=== PATIENT | male | born 1940 | race Caucasian/White ===

== ENCOUNTER 2018-09-23 17:38 | Inpatient (IN) | payer MEDICARE, BC ==
[2018-09-23 18:20] LABS: Bilirubin Negative (Negative); Blood, Urine Small (Negative); Clarity CLEAR (Clear); Glucose, Urine (Dipstick) 100 mg/dL (Negative); Leukocyte Negative (Negative); Nitrite Negative (Negative); Protein, Urine (Dipstick) 300 mg/dL (Neg-Trace); Specific Gravity, Urine 1.013 (1.002-1.036)
[2018-09-23 18:29] LABS: Bacteria/HPF None Seen HPF (None Seen); Hyaline Casts/LPF 0-3 HYALINE CAST LPF (0-3 Hyaline); Pathc Cast-AUWi Flag 0.27 (0-2.49); RBC/HPF 0-3 HPF (0-3); Squamous Epithelial 0-3 HPF (0-3); WBC/HPF 0-3 HPF (0-3)
[2018-09-23 19:10] LABS: #Eosinphils 0.1 thou/uL (0.0-0.7); #Lymphocytes 1.5 thou/uL (1.20-3.40); #Monocytes 0.7 thou/uL (0.11-0.59); #Neutrophils 6.5 thou/uL (1.40-6.50); %Basophils 0.4 % (0.0-1.0); %Eosinophils 1.4 % (0.0-10.0); %Lymphocytes 16.5 % (21.0-51.0); %Monocytes 7.9 % (0.0-10.0); %Neutrophils 73.9 % (42.0-75.0); Hemoglobin 9.4 g/dL (14.0-18.0); Mean Corpuscular HGB CONC 33.2 g/dL (32.0-36.0); Mean Corpuscular Hemoglobin 29.5 pg (27.0-31.0); Mean Corpuscular Volume 88.9 fL (78.0-98.0); Mean Platelet Volume 7.5 fL (7.4-10.4); Platelet Count 197 thou/uL (130-400); RBC Distribution Width 14.6 % (11.5-14.5); White Blood Cell (WBC) Count 8.8 thou/uL (4.8-10.8)
[2018-09-23] MEDS ORDERED: Nitroglycerin 2% Ointment 1 INCH/1 GM Packet ONE (19:11)
--- NOTE | 2018-09-23 19:17 | RAD ---
FExam: Portable upright chest Provided clinical history: Dyspnea FINDINGS: Cardiac silhouette appears enlarged. Blunting of the right costophrenic angle may reflect pleural flu id. Bibasilar subsegmental atelectatic change. No evidence for pneumothorax. IMPRESSION: Cardiomegaly and possible right pleural fluid.
[2018-09-23 19:37] LABS: ALT (SGPT) 9 U/L (8-55); AST (SGOT) 13 U/L (5-34); Albumin 3.8 g/dL (3.4-4.8); Alkaline Phosphatase 68 U/L (40-150); Anion Gap 22 mmol/L (10-20); BUN (Urea Nitrogen) 99 mg/dL (8.4-25.7); Bilirubin, Total 0.7 mg/dL (0.2-1.2); CK (CPK) 227 U/L (30-200); Calc. Creatinine Clearance 0 mL/min (70-130); Calcium 6.6 mg/dL (7.8-10.44); Carbon Dioxide 18 mmol/L (23-31); Chloride 108 mmol/L (98-107); Estimated GFR-MDRD 5; Globulin 2.9 g/dL (2.4-3.5); Glucose 85 mg/dL (83-110); Lipase 221 U/L (8-78); Potassium 4.7 mmol/L (3.5-5.1); Protein, Total 6.7 g/dL (5.8-8.1); Sodium 143 mmol/L (136-145)
[2018-09-23] MEDS ORDERED: Ondansetron PF 4 MG/2 ML Vial IVP PRN ×2 (22:48→23:54)
[2018-09-23] MEDS ORDERED: Ondansetron ODT 4 MG TAB SL PRN (22:48)
[2018-09-23] MEDS ORDERED: hydrALAZINE 20 MG/ML VIAL SLOW IVP PRN ×2 (23:04→23:54)
[2018-09-23] MEDS ORDERED: hydrALAZINE 10 MG TAB PO SCH (23:15)
[2018-09-23] MEDS ORDERED: hydrALAZINE 20 MG/ML VIAL SLOW IVP SCH (23:45)
[2018-09-23] MEDS: hydrALAZINE 20 MG/ML VIAL ONE (23:51)
[2018-09-23] MEDS ORDERED: Dextrose 50% Abboject 50 ML SYRINGE SLOW IVP PRN (23:54)
[2018-09-23] MEDS ORDERED: Acetaminophen 500 MG TAB PO PRN (23:54)
[2018-09-23] MEDS ORDERED: Dextrose 5% in Water 1,000 ML IV PRN (23:54)
[2018-09-23] MEDS ORDERED: Ondansetron ODT 4 MG TAB PO PRN (23:54)
[2018-09-23] MEDS ORDERED: Labetalol HCl 100 MG/20 ML VIAL SLOW IVP PRN (23:54)
[2018-09-23] MEDS ORDERED: HumaLOG 300 UNITS/3 ML VIAL SC PRN ×2 (23:54)
[2018-09-23] MEDS ORDERED: cloNIDine 0.1 MG TAB PO PRN (23:54)
--- NOTE | 2018-09-24 00:08 | CON ---
DATE OF CONSULTATION: 09/23/2018 CONSULTING PHYSICIAN: Berlin Gaston MD REASON FOR CONSULT: Acute kidney injury. REASON FOR ADMISSION: Abnormal labs. HISTORY OF PRESENT ILLNESS: This is a 78-year-old male with history of chronic kidney disease stage , hypertension, hyperlipidemia, melanoma, type 2 diabetes, came to the hospital with above complaints. Nephrology is consulted for further evaluation. The patient has been followed by Dr. Ewing, who has been having worsening renal function. The patient complains of shortness of breath and orthopnea. No fever or chills. No nausea, vomiting. No appetite changes. No bad taste in the mouth. PAST MEDICAL HISTORY: Positive for hypertension, hyperlipidemia, CKD, melanoma, type 2 diabetes, history of GEORGE. PAST SURGICAL HISTORY: Exploratory laparotomy for intestinal perforation. HOME MEDICATIONS: Include 1. Clonidine. 2. Ferrous sulfate. 3. Furosemide. 4. Glipizide. 5. Metoprolol. 6. Procardia. 7. Fish oil. 8. Zolpidem. ALLERGIES: NO KNOWN DRUG ALLERGIES. SOCIAL HISTORY: No smoking, alcohol, or illicit drug use. FAMILY HISTORY: No history of kidney disease. REVIEW OF SYSTEMS: CONSTITUTIONAL: Negative for weight loss or gain, ability to conduct usual activities. SKIN: Negative for rash, itching. EYES: Negative for double vision, pain. ENT/MOUTH: Negative for nose bleeding, neck stiffness, pain, tenderness. CARDIOVASCULAR: Negative for palpitations, dyspnea on exertion, orthopnea. RESPIRATORY: Negative for shortness of breath, wheezing, cough, hemoptysis, fever or night sweats. GASTROINTESTINAL: Negative for poor appetite, abdominal pain, heartburn, nausea, vomiting, constipation, or diarrhea. GENITOURINARY: Negative for urgency, frequency, dysuria, nocturia. MUSCULOSKELETAL: Negative for pain, swelling. NEUROLOGIC/PSYCHIATRIC: Negative for anxiety, depression. ALLERGY/IMMUNOLOGIC: Negative for skin rash, bleeding tendency. PHYSICAL EXAMINATION: GENERAL: This is a well-built male, in no apparent distress. VITAL SIGNS: Temperature 98.6, pulse 70, respirations 18, blood pressure 198/112. HEENT: Atraumatic, normocephalic. Oral mucosa is moist. NECK: Supple. CV: S1 and S2 heard. Rate and rhythm regular. RESPIRATORY: Clear. GASTROINTESTINAL: Abdomen is soft. MUSCULOSKELETAL: 1+ edema. DERMATOLOGIC: No skin rash. NEUROLOGIC: Alert and awake. PSYCHIATRIC: Normal mood and affect. LABORATORY DATA: Hemoglobin is 9.4, potassium 4.7, BUN is 99, creatinine is 9.8. ASSESSMENT AND PLAN: 1. End-stage renal disease. The patient does have progression of chronic kidney disease to end-stage renal disease, needing dialysis. No access placed yet. The patient has been postponing the access placement. Plan is to consult Surgery, keep n.p.o. after midnight and start dialysis as tolerated once the access is placed. 2. Metabolic acidosis, most likely from renal failure. 3. Anemia of chronic kidney disease. 4. Elevated BNP with fluid overload and shortness of breath. No hypoxia noted. We will remove fluid with dialysis as tolerated. 5. Hypertension. Continue medications. We will remove fluid with dialysis as tolerated and titrate medication as needed. 6. Edema. Plan is to start on dialysis. I had a detailed discussion with the patient and his and family member and the plan is to start dialysis. All the questions answered and we will have case management consult and surgery consult placed. We will keep n.p.o. after midnight. Check dialysis order set in the morning and we will plan for dialysis as soon as catheter is placed and plan is to have a fistula placement. The patient was also educated on PD and is not interested in doing PD at home at this point. Thank you for the consult. We will follow. Job ID: [id number]
[2018-09-24] MEDS: hydrALAZINE 20 MG/ML VIAL ONE (00:10)
[2018-09-24] MEDS ORDERED: Non-Formulary Item 1 EACH (Fexofenadine Hcl [Allegra Allergy] 60 MG) PO PRN (00:21)
[2018-09-24] MEDS ORDERED: Furosemide 40 MG/4 ML VIAL SLOW IVP SCH (00:30)
[2018-09-24] MEDS: Zolpidem Tartrate 5 MG TAB PO PRN ×2 (01:02→23:05)
[2018-09-24] MEDS: Loratadine 10 MG TAB PO PRN ×2 (01:02→20:35)
--- NOTE | 2018-09-24 01:16 | HP ---
PRIMARY CARE PROVIDER: Dr. Jeff Jones. CHIEF COMPLAINT: Swelling and shortness of breath. HISTORY OF PRESENT ILLNESS: This is a 78-year-old male, who presents to [facility] Emergency Department after being referred to the emergency room by his primary wardrobe technician. The patient with known chronic kidney disease stage 4 to 5, being monitored by Dr. Ewing. The patient's creatinine had been increasing to over 10 and previously noted in the 9 range several weeks prior to this evaluation. The patient has been medically managed by Dr. Ewing with recent change to metoprolol from atenolol and continuation of Lasix for volume management. The patient admits to increased shortness of breath with short distance ambulation or activity progressive in the last several days. The patient admits to increased swelling of his lower extremities progressing into the thighs and lower abdomen. The patient denied any fever, chills, chest pain, or left arm discomfort. The patient denies any other change to his chronic medication regimen and has been compliant according to the . In the emergency room, the patient underwent general evaluation, receiving transdermal nitroglycerin due to markedly elevated blood pressure in the emergency room. The patient's initial blood pressure is noted in the 215/116 range, receiving hydralazine and transdermal nitrates. The patient denies noting similar values using his home monitor. PAST MEDICAL HISTORY: 1. Chronic kidney disease stage 4, progressing to stage 5. 2. Hyperlipidemia. 3. Hypertension. 4. History of ischemic bowel with perforation. 5. Diabetes mellitus, type 2. PAST SURGICAL HISTORY: 1. Status post cyst removal from the right neck. 2. Status post bowel resection secondary to perforation. 3. Status post colonoscopy, last performed 5 years prior to this evaluation. CURRENT MEDICATIONS: 1. Metoprolol 100 mg p.o. b.i.d. 2. Glipizide 5 mg p.o. daily. 3. Lasix 40 mg p.o. b.i.d. 4. Clonidine 0.2 mg p.o. at bedtime. 5. Farideh 60 mg p.o. daily. 6. [place]-3 fatty acids 1 capsule p.o. daily. 7. Ambien 10 mg p.o. at bedtime p.r.n. ALLERGIES: NO KNOWN DRUG ALLERGIES. FAMILY HISTORY: Positive for hypertension and diabetes mellitus. SOCIAL HISTORY: The patient is , accompanied by his in the hospital. Resides at [place], [place]. Retired. No current alcohol, tobacco, or illicit drug use. Functional of all activities of daily living. REVIEW OF SYSTEMS: CONSTITUTIONAL: Negative for weight loss or gain, ability to conduct usual activities. SKIN: Negative for rash, itching. EYES: Negative for double vision, pain. ENT/MOUTH: Negative for nose bleeding, neck stiffness, pain, tenderness. CARDIOVASCULAR: Negative for palpitations, dyspnea on exertion, orthopnea. RESPIRATORY: Negative for shortness of breath, wheezing, cough, hemoptysis, fever or night sweats. GASTROINTESTINAL: Negative for poor appetite, abdominal pain, heartburn, nausea, vomiting, constipation, or diarrhea. GENITOURINARY: Negative for urgency, frequency, dysuria, nocturia. MUSCULOSKELETAL: Negative for pain, swelling. NEUROLOGIC/PSYCHIATRIC: Negative for anxiety, depression. ALLERGY/IMMUNOLOGIC: Negative for skin rash, bleeding tendency. Otherwise, negative except as stated per HPI. PHYSICAL EXAMINATION: VITAL SIGNS: On admission. Blood pressure 215/116, pulse 79, respiratory rate 20, temperature 98.2 degrees Fahrenheit, O2 saturation 98% on room air. GENERAL APPEARANCE: This is a 78-year-old male, alert and oriented x3, pleasant, in no acute distress. HEENT: Pupils are equal, round, reactive to light and accommodation. Extraocular muscles are intact. No scleral icterus. No conjunctival injection. Nares patent. OP is clear. Teeth in fair repair. NECK: Supple. No cervical adenopathy. No thyromegaly. No carotid bruits. No JVD appreciated. Cervical spine with full active and passive range of motion. No meningeal signs noted. CHEST: Diminished breath sounds in the bases bilaterally with occasional crackles. CARDIOVASCULAR: S1, S2 without noted murmur, rub, or gallop. ABDOMEN: Protuberant without tenderness to palpation. No palpable mass. No rebound or guarding noted. Landmarks are difficult to palpate due to patient's body habitus. EXTREMITIES: Warm and dry with fair turgor. Pitting edema to the mid thighs bilaterally. Pulses are palpable distally at the dorsalis pedis, posterior tibial, and popliteal arteries bilaterally. Capillary refill is less than 2 seconds. NEUROLOGIC: Cranial nerves 2 through 12 are grossly intact. No focal or lateralizing signs appreciated. PERTINENT LAB AND X-RAY FINDINGS: Sodium 143, potassium 4.7, chloride 108, CO2 of 18, anion gap 22, BUN 99, creatinine 9.81, estimated GFR 5, glucose 85, calcium 6.6. LFTs within normal limits. Total CK 227. BNP 3064, albumin 3.8, lipase 221. CBC showed a white blood cell count of 8.8, hemoglobin 9.4, hematocrit 28.4, platelet count 197 with normal differential. Urinalysis, positive for glucose and protein. Portable chest x-ray dated 09/23/2018, showed cardiomegaly and right pleural effusion. EKG dated 09/23/2018, by my interpretation shows sinus mechanism with heart rates in the 70s. Attenuated R-waves noted in the precordial leads. T-waves noted in the precordial leads. Normal axis. Left bundle-branch block pattern. No acute ST-T wave changes noted. ASSESSMENT/PLAN: 1. End-stage renal disease. The patient will be admitted to the telemetry unit. The patient progressing from chronic kidney disease stage 4 to stage 5. We will consult Nephrology Service for timing of hemodialysis, likely in the next 24 hours. The patient with associated volume overload clinically. Continue Lasix 40 mg IV b.i.d. until H hemodialysis initiated. 2. Hypertensive urgency. Resume home antihypertensive regimen to include metoprolol succinate 100 mg b.i.d. and clonidine 0.2 mg at bedtime. Add hydralazine and clonidine p.r.n. Continue transdermal nitrates. 3. Metabolic acidosis secondary to #1. We will continue treatment as outlined in #1. Serial CO2 monitoring. 4. Melena. Suspected on clinical exam. Check stool for guaiac. Rule out Clostridium difficile and check stool culture. Serial H and H monitoring. Consider GI consultation. 5. Anemia of chronic kidney disease. We will continue serial hemoglobin and hematocrit monitoring. Repeat CBC in the a.m. 6. Diabetes mellitus type 2 with end-stage renal disease. Continue insulin sliding scale for reflexive coverage. Hold glipizide due to n.p.o. status. Accu-Cheks before meals and at bedtime. ADA diet when tolerating p.o. intake. 7. Prophylaxis. SCDs while in bed. Pepcid 20 mg p.o. b.i.d. 8. Code status is full. Surrogate medical decision maker is the patient's spouse. Job ID: [id number]
[2018-09-24] MEDS: Furosemide 40 MG/4 ML VIAL SLOW IVP SCH ×2 (06:04→14:00)
[2018-09-24 06:30] LABS: Anion Gap 23 mmol/L (10-20); BUN (Urea Nitrogen) 98 mg/dL (8.4-25.7); Calc. Creatinine Clearance 8 mL/min (70-130); Calcium 6.8 mg/dL (7.8-10.44); Carbon Dioxide 15 mmol/L (23-31); Chloride 111 mmol/L (98-107); Estimated GFR-MDRD 5; Potassium 4.5 mmol/L (3.5-5.1); Sodium 144 mmol/L (136-145)
[2018-09-24 06:39] LABS: Hemoglobin 8.9 g/dL (14.0-18.0); Lymphocytes 12 % (21-51); MDiff Complete? YES; Mean Corpuscular Hemoglobin 29.9 pg (27.0-31.0); Mean Platelet Volume 7.6 fL (7.4-10.4); Monocytes 7 % (0-10); Neutrophil 81 % (42-75); Platelet Count 190 thou/uL (130-400); RBC Distribution Width 14.4 % (11.5-14.5); Red Blood Cell (RBC) Count 2.97 mill/uL (4.70-6.10); White Blood Cell (WBC) Count 10.4 thou/uL (4.8-10.8)
[2018-09-24 06:51] LABS: HBSAB Concentration 1.33 mIU/mL; HBSAg Index 0.31 S/CO (0-0.99); Hep B Core Total Ab Non-Reactive (NonReactive); Hep B Core Total Index 0.09 S/CO (0-0.79); Hep B Surf AB Non-Reactive (NonReactive); Hep B Surf Ag Non-Reactive S/CO (NonReactive); Hep C IgG Ab Non-Reactive (NonReactive); Hep C Index 0.16 S/CO (0-0.79)
[2018-09-24 07:06] LABS: Glucose 54 mg/dL (83-110)
[2018-09-24] MEDS ORDERED: Senokot S 8.6-50 MG TAB PO PRN (07:57)
[2018-09-24] MEDS ORDERED: Loperamide HCl 2 MG CAP PO PRN (07:57)
[2018-09-24] MEDS ORDERED: Artificial Tears 18 DROP/0.9 ML EA EYE PRN (07:57)
[2018-09-24] MEDS ORDERED: Calcium Carbonate 500 MG ChewTAB PO PRN (07:57)
[2018-09-24] MEDS ORDERED: Sodium Chloride 0.65% Nasal 44 ML BOT EA NARE PRN (07:57)
[2018-09-24] MEDS ORDERED: Cepastat Lozenges 1 LOZ PO PRN (07:57)
[2018-09-24] MEDS ORDERED: Eucerin (Mineral Oil/Petrolatum,White) 30 gm Jar TOP PRN (07:57)
[2018-09-24] MEDS ORDERED: HYDROcodone/Acetaminophen 5/325 mg Tablet PO PRN (07:57)
[2018-09-24] MEDS ORDERED: Diabetic Tussin 200 MG/10 ML UDCUP PO PRN (07:57)
[2018-09-24] MEDS ORDERED: Nitroglycerin 0.4 MG TAB (25 Tab Bottle) SL PRN (07:57)
[2018-09-24] MEDS ORDERED: Acetaminophen 500 MG TAB PO PRN ×2 (07:58→15:18)
[2018-09-24 08:25] LABS: Iron 49 ug/dL (65-175); Iron Binding Capacity, Total 269 mcg/dL (261-462); Phosphorus 7.3 mg/dL (2.3-4.7)
[2018-09-24] MEDS ORDERED: CEFAZOLIN 2 GM in Premix Bag 1 BAG IVPB SCH (09:45)
[2018-09-24] MEDS: Famotidine 20 MG TAB PO SCH (09:56)
[2018-09-24] MEDS: Folic Acid/Vit B Comp W-C PO SCH (09:56)
--- NOTE | 2018-09-24 10:02 | HP ---
HISTORY OF PRESENT ILLNESS: A 78-year-old male patient with chronic kidney disease, end-stage renal disease, needs dialysis access. He has left antecubital IV. Vein mapping has been ordered and pending. I have been asked by Dr. Mariano to place a dialysis catheter and fistula. Dr. Leon Hernández has been consulted for anemia and GI bleed. The patient is n.p.o. C globin is 8.9, potassium 4.5, BUN 98, creatinine 9.68, GFR 5. The patient has longstanding diabetes and hypertension. ALLERGIES: NONE SOCIAL HISTORY: Tobacco, none. Alcohol, occasional beer. MEDICATIONS: At home include, 1. Glipizide. 2. Catapres. 3. [place]-3 softgels. 4. Metoprolol 100 mg b.i.d. 5. Furosemide 40 mg b.i.d. 6. Ambien 10 mg at bedtime. PAST SURGICAL HISTORY: He had a laparotomy a few months ago at [facility] for perforated small bowel. He has skin cancers removed from his neck and arms. He has recently had a biopsy, right upper arm. He has undergone low-dose radiation for his recurrent diffuse skin cancers. He has had a colonoscopy 5 years ago. PAST MEDICAL HISTORY: Chronic kidney disease, hyperlipidemia, hypertension, and diabetes mellitus. REVIEW OF SYSTEMS: Noncontributory. PHYSICAL EXAMINATION: VITAL SIGNS: Height 5 foot 7 inches, weight 203 pounds, 31 BMI. Temperature 97.4, pulse 81, blood pressure 99/95. HEAD, EARS, EYES, NOSE AND THROAT: Unremarkable. LUNGS: Clear to auscultation. CARDIAC: Regular rate and rhythm without murmur or gallop. ABDOMEN: Soft and nontender. VASCULAR: Palpable radial pulses bilaterally. Left antecubital IV removed. Right hand IV present. EXTREMITIES: Unremarkable. No ankle edema. LABORATORY DATA: Sodium 144, potassium 4.5, BUN 98, creatinine 9.86, GFR 5, glucose 138 this morning, 54 earlier. ASSESSMENT AND PLAN: 1. End-stage renal disease. Plan placement of a hemodialysis catheter and left and right arm fistula. He is right-handed. Hopefully, we can use left arm, but of course, this will pend vein mapping. Left antecubital IV was removed in this patient with end-stage renal disease, chronic kidney disease and should not have been placed. Avoid IV access above his wrist. Preserve veins for dialysis access. Avoid PICC lines and midlines. 2. Diabetes mellitus. 3. Hypertension. Job ID: [id number]
--- NOTE | 2018-09-24 11:51 | PDOC.PN ---
- Subjective Encounter Start Date: 09/24/18 Encounter Start Time: 07:50 -: old records requested/rev Patient seen and examined. No new complaints. No overnight events - Objective Resuscitation Status - Order Detail: 09/23/18 23:49 Resuscitation Status Routine Resuscitation Status: FULL: Full Resuscitation MAR Reviewed: Yes Vital Signs & Weight: Vital Signs (12 hours) Temp Pulse Resp BP BP Pulse Ox 09/24/18 09:56 199/95 H 09/24/18 08:00 97.4 F L 80 16 199/95 H 98 09/24/18 04:00 98.1 F 78 20 177/88 H 97 09/24/18 00:30 82 164/74 H 09/24/18 00:10 88 220/108 H 09/23/18 23:52 88 220/108 H Weight Admit Weight 203 lb 12.8 oz Weight 203 lb 12.8 oz I&O: 09/23/18 09/24/18 09/25/18 06:59 06:59 06:59 Intake Total 354 Output Total 900 Balance -546 Result Diagrams: 09/24/18 05:28 09/24/18 05:28 Additional Labs: Accuchecks 09/24/18 09/24/18 09/24/18 11:33 06:47 05:43 POC Glucose 82 138 H 67 L EKG Reviewed by me: Yes Phys Exam - Physical Examination Constitutional: NAD HEENT: PERRLA, moist MMs, sclera anicteric Neck: no JVD, supple Respiratory: no wheezing, no rales, no rhonchi Cardiovascular: RRR, no significant murmur, no rub Gastrointestinal: soft, non-tender, no distention, positive bowel sounds Musculoskeletal: no edema, pulses present Neurological: non-focal, normal sensation, moves all 4 limbs Lymphatic: no nodes Psychiatric: normal affect, A&O x 3 Skin: no rash, normal turgor Dx/Plan (1) ESRD needing dialysis Code(s): N18.6 - END STAGE RENAL DISEASE; Z99.2 - DEPENDENCE ON RENAL DIALYSIS Status: Acute (2) High anion gap metabolic acidosis Code(s): E87.2 - ACIDOSIS Status: Acute (3) Hypoglycemia associated with type 2 diabetes mellitus Code(s): E11.649 - TYPE 2 DIABETES MELLITUS WITH HYPOGLYCEMIA WITHOUT COMA Status: Acute (4) Occult blood in stools Status: Acute (5) Anemia of renal disease Code(s): N18.9 - CHRONIC KIDNEY DISEASE, UNSPECIFIED; D63.1 - ANEMIA IN CHRONIC KIDNEY DISEASE Status: Chronic (6) Diabetes type 2, controlled Code(s): E11.9 - TYPE 2 DIABETES MELLITUS WITHOUT COMPLICATIONS Status: Chronic (7) Dyslipidemia Code(s): E78.5 - HYPERLIPIDEMIA, UNSPECIFIED Status: Chronic (8) Hypertension Code(s): I10 - ESSENTIAL (PRIMARY) HYPERTENSION Status: Chronic (9) Obesity (BMI 30.0-34.9) Code(s): E66.9 - OBESITY, UNSPECIFIED Status: Chronic (10) Secondary hyperparathyroidism of renal origin Code(s): N25.81 - SECONDARY HYPERPARATHYROIDISM OF RENAL ORIGIN Status: Chronic - Plan cont current plan of care, plan discussed w/ family * iron study * PTH, phos * start renvella * today HD access procedure * medication reviewed as below * symptomatic treatment * social work to arrange oupt HD * home meds reconciled. Review of Systems - Review of Systems ENT: negative: Ear Pain, Ear Discharge, Nose Pain, Nose Discharge, Nose Congestion, Mouth Pain, Mouth Swelling, Throat Pain, Throat Swelling, Other Respiratory: negative: Cough, Dry, Shortness of Breath, Hemoptysis, SOB with Excertion, Pleuritic Pain, Sputum, Wheezing Cardiovascular: negative: chest pain, palpitations, orthopnea, paroxysmal nocturnal dyspnea, edema, light headedness, other Gastrointestinal: negative: Nausea, Vomiting, Abdominal Pain, Diarrhea, Constipation, Melena, Hematochezia, Other Genitourinary: negative: Dysuria, Frequency, Incontinence, Hematuria, Retention , Other Musculoskeletal: negative: Neck Pain, Shoulder Pain, Arm Pain, Back Pain, Hand Pain, Leg Pain, Foot Pain, Other Skin: negative: Rash, Lesions, Aquiles, Bruising, Other - Medications/Allergies Allergies/Adverse Reactions: Allergies Allergy/AdvReac Type Severity Reaction Status Date / Time No Known Drug Allergies Allergy Verified 09/23/18 23:05 Medications: Current Medications Acetaminophen (Tylenol) 500 mg PO Q6H PRN PRN Reason: Mild Pain (1-3) Hydrocodone Bitart/Acetaminophen (Gregory 5/325) 1 tab PO Q4H PRN PRN Reason: Moderate Pain (4-6) Artificial Tears (Tears Naturale) 2 drop EA EYE PRN PRN PRN Reason: Dry Eyes Calcium Carbonate (Tums) 1,000 mg PO Q4H PRN PRN Reason: Heartburn or Indigestion Clonidine (Catapres) 0.1 mg PO Q4H PRN PRN Reason: SBP Greater Than 170 Last Admin: 09/24/18 09:56 Dose: 0.1 mg Clonidine (Catapres) 0.2 mg PO HS MARIA G Dextrose/Water (Dextrose 50%) 25 gm SLOW IVP PRN PRN PRN Reason: Hypoglycemia Last Admin: 09/24/18 06:04 Dose: 25 gm Famotidine (Pepcid) 20 mg PO QAM MARIA G Last Admin: 09/24/18 09:56 Dose: 20 mg Furosemide (Lasix) 40 mg SLOW IVP 0600,1400 [facility] Last Admin: 09/24/18 06:04 Dose: 40 mg Glucagon (Glucagon) 1 mg IM PRN PRN PRN Reason: Hypoglycemia Guaifenesin (Robitussin Sf) 200 mg PO Q4H PRN PRN Reason: Cough Hydralazine HCl (Apresoline) 20 mg SLOW IVP Q4H PRN PRN Reason: SBP > 180 and HR < 70 Dextrose/Water (D5w) 1,000 mls @ 0 mls/hr IV .Q0M PRN PRN Reason: Hypoglycemia Cefazolin Sodium/Dextrose 2 gm (/ Device) 50 mls @ 100 mls/hr IVPB ONCALL-OR MARIA G Insulin Human Lispro (Humalog) 0 units SC .MILD SLIDING SCALE PRN PRN Reason: Mild Correctional Scale Insulin Human Lispro (Humalog) 0 units SC .BEDTIME SLIDING SC PRN PRN Reason: Bedtime Correctional Scale Labetalol HCl (Normodyne) 20 mg SLOW IVP Q4H PRN PRN Reason: SBP > 180 and HR >/= 70 Loperamide HCl (Imodium) 2 mg PO PRN PRN PRN Reason: Diarrhea/Loose Stools Loratadine (Claritin) 10 mg PO DAILYPRN PRN PRN Reason: Allergies Last Admin: 09/24/18 01:02 Dose: 10 mg Metoprolol Succinate (Toprol Xl) 100 mg PO BID [facility] Last Admin: 09/24/18 09:57 Dose: 100 mg Mineral Oil/White Petrolatum (Eucerin Cream) 0 gm TOP BIDPRN PRN PRN Reason: Dry Skin Nitroglycerin (Nitrostat) 0.4 mg SL Q5MIN PRN PRN Reason: Chest Pain Ondansetron HCl (Zofran Odt) 4 mg PO Q6H PRN PRN Reason: Nausea/Vomiting Ondansetron HCl (Zofran) 4 mg IVP Q6H PRN PRN Reason: Nausea/Vomiting Senna/Docusate Sodium (Senokot S) 2 tab PO BID PRN PRN Reason: Constipation Sevelamer Carbonate (Renvela) 1,600 mg PO TID-[facility] Sodium Chloride (Flush - Normal Saline) 10 ml IVF Q12HR MARIA G Last Admin: 09/24/18 09:57 Dose: 10 ml Sodium Chloride (Flush - Normal Saline) 10 ml IVF PRN PRN PRN Reason: Saline Flush Sodium Chloride ([place] Nasal [place] 0.65%) 0 ml EA NARE QIDPRN PRN PRN Reason: Nasal Congestion Throat Lozenges (Cepastat Lozenges) 1 rosalba PO Q2H PRN PRN Reason: Sore Throat Vitamin B Complex/Vit C/Folic Acid (Nephro-Luda Tablet) 1 tab PO DAILY MARIA G Last Admin: 09/24/18 09:56 Dose: 1 tab Zolpidem Tartrate (Ambien) 10 mg PO HS PRN PRN Reason: sleep Last Admin: 09/24/18 01:02 Dose: 10 mg
[2018-09-24] MEDS: Sevelamer Carbonate 800 MG TAB PO SCH ×2 (12:00→17:00)
--- NOTE | 2018-09-24 12:09 | ULT ---
BILATERAL UPPER EXTREMITY VENOUS DOPPLER ULTRASOUND FOR DIALYSIS ACCESS: FINDINGS: RIGHT UPPER EXTREMITY: The right cephalic vein measures 2.1 mm in the proximal arm, 2.4 mm in the mid arm, 1.9 mm in the dis ashwin arm and cubital fossa, 2.4 mm in the proximal and mid arm, and 2.7 mm in the distal arm. The right basilic vein measures 3.9 mm in the proximal arm, 2.9 mm in the mid arm, 1.8 mm in the dist al arm, 1.4 mm in the cubital fossa, 1.2 mm in the proximal forearm, 0.8 mm in the mid forearm, and 1 .1 mm in the distal forearm. The right brachial artery measures 5.8 mm, radial artery 3 mm, and ulnar artery 1.1 mm. LEFT UPPER EXTREMITY: The left cephalic vein measures 2.4 mm in the proximal arm, 2.9 mm in the mid arm, 1.7 mm in the dist al arm, 2 mm in the cubital fossa, 1.5 mm in the proximal forearm, 2.1 mm in the mid forearm, and 2.3 mm in the distal forearm. The left basilic vein measures 4.1 mm in the proximal arm, 3.7 mm in the mid arm, 3.5 mm in the dista l arm, 2.5 mm in the cubital fossa, 0.9 mm in the proximal forearm, 0.7 mm in the mid forearm, 1.2 mm in the distal forearm. The left brachial artery measures 5 mm, radial artery 2.9 mm, and ulnar artery 2.7 mm. POS: TPC
[2018-09-24] MEDS ORDERED: Bupivacaine HCl 0.5%/Epinephrine 1:200,000/PF 30 ml Vial ONE ×2 (13:11→14:04)
[2018-09-24] MEDS ORDERED: Heparin 10,000 UNITS/ 10 ML VIAL ONE (13:45)
[2018-09-24] MEDS ORDERED: Metoprolol Tartrate 5 MG/5 ML VIAL ONE (13:45)
[2018-09-24] MEDS ORDERED: PROPOFOL 200 MG/20 ML VIAL ONE (13:46)
[2018-09-24] MEDS ORDERED: Heparin 10,000 UNITS/1 ML VIAL ONE (14:04)
[2018-09-24] MEDS ORDERED: Sodium Chloride 0.9% 10 ML ONE (14:04)
[2018-09-24] MEDS ORDERED: Protamine Sulfate 50 MG/5 ML VIAL ONE (14:04)
[2018-09-24] MEDS ORDERED: Lidocaine 2% PF 5 ML VIAL ONE (14:04)
[2018-09-24] MEDS ORDERED: Heparin 5,000 UNITS/ML VIAL ONE (14:04)
[2018-09-24] MEDS ORDERED: Fentanyl 100 MCG/2 ML VIAL ONE (14:35)
[2018-09-24] MEDS ORDERED: Midazolam HCl 2 mg/2 ml Vial ONE (14:35)
[2018-09-24] MEDS ORDERED: traMADol HCl 50 MG TAB PO PRN (15:18)
--- NOTE | 2018-09-24 17:00 | RAD ---
FEXAM: Portable chest PROVIDED CLINICAL HISTORY: Post central line placement COMPARISON: 09/23/2018 7:03 PM FINDINGS: Cardiac silhouette remains enlarged. Elevation of the right hemidiaphragm with blunting of the right costophrenic angle. Interval placement of left IJ central line, the tip of which projects in the expe cted location of the cavoatrial junction. Interval placement of right IJ dialysis catheter, tips of w hich project in expected location of SVC. No evidence for pneumothorax. No definite focal consolidati on. IMPRESSION: Interval central line placement.
--- NOTE | 2018-09-24 17:51 | PRG ---
DATE OF SERVICE: 09/24/2018 SUBJECTIVE: Patient was seen and examined at bedside and overnight events noted. Patient denies any shortness of breath or chest pain or palpitation. No history of nausea or vomiting or diarrhea or fever or chills or cramps. OBJECTIVE: GENERAL: This is a well-built male, in no apparent distress. VITAL SIGNS: Temperature 97.4. Heart rate 80. Respiratory rate 16. Blood pressure 190/95. HEENT: Atraumatic, normocephalic. Oral mucosa is moist NECK: Supple. CARDIOVASCULAR: S1, S2 heard. Rate and rhythm regular. RESPIRATORY: Clear to auscultation. GASTROINTESTINAL: Abdomen is soft. MUSCULOSKELETAL: No tenderness. No edema. DERMATOLOGIC: No skin rash. NEUROLOGIC: Alert and awake and oriented X3. No focal neurologic deficits. Moving all the extremities. PSYCHIATRIC: Mood and affect normal. LABORATORY DATA: Creatinine is 9.9. ASSESSMENT AND PLAN: 1. End-stage renal disease. Continue on dialysis. We will have consult for Surgery and Case Management. 2. Metabolic acidosis. 3. Anemia. 4. Elevated BNP. 5. Hypertension. 6. Edema. 7. Follow with Case Management for outpatient placement. We will start on dialysis once access is placed. Job ID: [id number]
[2018-09-24] MEDS ORDERED: Tuberculin PPD 0.1 ML VIAL I-DERMAL SCH (18:00)
--- NOTE | 2018-09-24 18:59 | CON ---
DATE OF CONSULTATION: 09/24/2018 CHIEF COMPLAINT: Blood in the stool. HISTORY OF PRESENT ILLNESS: Mr. Levin is a 78-year-old man, who was admitted to the hospital with shortness of breath and swelling. He was found to be anemic and reported blood in the stool and GI was consulted to evaluate that. He was also found to have end-stage renal disease and hypertensive urgency and is undergoing dialysis catheter placement by Dr. Giles today to initiate dialysis. He has not been on dialysis prior to this. He states that a couple of weeks ago, he noticed red blood in the stool that turned water red. Otherwise, he has bowel movement a couple of times per day and has had no abdominal pain associated with that. He has had no prior history of lower GI bleeding. He had repeat bleeding in the last 2 days. He had 2 liquidy bloody stools this morning. He has had no fever or diarrhea preceding that. He reports colonoscopy was done in [place] by Dr. Ortega maybe five years ago. PAST MEDICAL HISTORY: Hypertension; hyperlipidemia; chronic kidney disease over the last six years, which has now progressed to the point that he is requiring dialysis; diabetes mellitus type 2. He had a few inches of his intestine resected several years ago after an ischemic event. PAST SURGICAL HISTORY: Bowel resection, colonoscopy, and cyst removed from his neck. FAMILY HISTORY: Negative for GI malignancies. SOCIAL HISTORY: No alcohol, tobacco, or drugs. ALLERGIES: NO KNOWN DRUG ALLERGIES. MEDICATIONS: Prior to admission, 1. Metoprolol. 2. Glipizide. 3. Lasix. 4. Clonidine. 5. Farideh. 6. [place]-3 fatty acid. 7. Ambien. REVIEW OF SYSTEMS: Negative x10 systems reviewed except as stated in the history of present illness. PHYSICAL EXAMINATION: VITAL SIGNS: Temperature is 97.4, pulse 65, and blood pressure 179/79. GENERAL: He is in no acute distress. Alert and oriented x3. HEENT: His eyes have no scleral icterus. Oropharynx is clear without lesions. No cervical or supraclavicular lymphadenopathy. LUNGS: Clear to auscultation bilaterally with some crackles in the bases. HEART: Regular rate and rhythm without murmur. ABDOMEN: Soft, nontender, and nondistended. Bowel sounds are present. EXTREMITIES: 2+ pitting lower extremity edema. Cranial nerves are grossly intact. LABORATORY DATA: White blood cell count 10.4, hemoglobin 8.9, MCV 88, platelets 190. Iron 49, TIBC 269, ferritin 76, creatinine 9.86, bilirubin 0.7, AST 13, ALT 6, alkaline phosphatase 68. IMPRESSION: 1. Hematochezia associated with normocytic anemia. He had couple episodes of liquidy red blood this morning and then another episode two weeks ago. This could be hemorrhoidal type bleeding that is exacerbated by platelet dysfunction associated with his end-stage renal disease, however, this could be a more proximal source as well. Last colonoscopy was around 5 years ago and followup colonoscopy would be indicated at this time. Given his anemia and low iron level and ferritin is within normal range, but not high enough to rule out iron deficiency, I would plan upper endoscopy to be performed at the same time. 2. Acute worsening of chronic renal insufficiency. 3. Normocytic anemia. RECOMMENDATIONS: We will plan EGD and colonoscopy to evaluate the anemia and GI bleeding. I would delay this until after he has dialysis initiated and his fluid balance and electrolytes are optimized regarding initiation of the dialysis. We could perform endoscopy in a few days depending on the extent of bleeding over the next couple of days. Job ID: [id number]
--- NOTE | 2018-09-24 19:51 | OP ---
DATE OF PROCEDURE: 09/24/2018 PREOPERATIVE DIAGNOSES: End-stage renal disease, poor IV access, left antecubital IV that was removed when I initially saw him, IV attempts, right cephalic vein wrist, antecubital vein right with hematoma. POSTOPERATIVE DIAGNOSES: End-stage renal disease, poor IV access, left antecubital IV that was removed when I initially saw him, IV attempts, right cephalic vein wrist, antecubital vein right with hematoma. PROCEDURES PERFORMED: Right IJ cuffed tunneled hemodialysis catheter, left IJ central line, ultrasound fluoroscopy used, exploration of right wrist, noting the vein to be an adequate hematoma from previous sticks, wound closed. Primary fistula, right arm. Perforating branch antecubital vein to the proximal radial artery outflow, basilic and cephalic vein outflow, cephalic vein calibrated to 4-mm coronary dilator, retrograde antecubital vein preserved. Radial artery of excellent quality without arteriosclerotic disease. ANESTHESIA: Regional, right upper extremity block, TIVA, local of 0.5% Marcaine with epinephrine 30 mL mixed to 2% Xylocaine 10 mL. DESCRIPTION OF PROCEDURE: The patient was taken to the operating room. Under regional anesthesia, neck and chest were prepared with ChloraPrep and draped in routine fashion. Local anesthetic infiltrated in the skin and subcutaneous tissue about the operative site. Ultrasound guidance was used to cannulate the right and left internal jugular veins. J-wire threaded, trocar catheter was removed on both sides. Skin site was enlarged sharply. Stab incision was made over the right chest. On the left side, Seldinger technique was used to place a triple-lumen catheter, removed the J-wire, securing the catheter with 3-0 nylon suture. CHD dressing applied as each port aspirated, blood flushed with heparinized saline solution. On the right side, the pre-curved [employer] cuffed-tunneled hemodialysis catheter, tunneled between the two incisions, placed the fabric cuff beneath the skin exit site, securing it with 3-0 nylon suture, CHD dressing applied. Small and medium size dilators were placed over the J-wire into the internal jugular vein and removed. Dilator and Peel-Away sheath placed, and catheter placed through the Peel-Away sheath and Peel-Away sheath removed. Fluoroscopically, catheter was noted to be in good position. Platysma was approximated with 4-0 Monocryl, skin with subdermal 4-0 Monocryl. Sterile dressings applied. Each port aspirated blood, flushed with heparinized saline solution. Then, 1000 units of heparin per mL indicating the volume of the port. The IV was removed from the right hand. An IV access established in the new central line, left IJ, and right upper extremity was prepared with ChloraPrep and draped in routine fashion. Incision was made at the wrist, and the cephalic vein was seen to be of possible adequate caliber, but there was large hematoma on the puncture site from multiple IV accesses, and this wound was closed by approximating subcutaneous tissues with 3-0 Monocryl, skin with subdermal Monocryl and Dermaglue applied. Incision was made in the proximal volar forearm below the antecubital fossa, carried down to skin and subcutaneous tissue longitudinally and again, there was a large hematoma and previous IV access in this antecubital area in a known patient with end-stage renal disease, sent to the emergency room for dialysis access. The careful dissection revealed antecubital vein perforating branch and communication of the cephalic basilic vein both. The patient was given 6000 units of heparin intravenously. Perforating branch dissected free. Clips used to divide the perforating branches, spatulated over branch points and interrogated with coronary dilators, passing coronary dilators from 2 mm to 4 mm coronary dilator out the cephalic vein outflow without restriction. Communication in basilic vein retained as well as retrograde antecubital vein. Small branches were divided between clips and 4-0 silk ties. The patient had been given 6000 units of heparin intravenously and proximal radial artery clamped proximally and distally. Longitudinal arteriotomy was made sharply, elongated with the Lyons scissors for 2.5 cm anastomosis between the spatulated perforating branch antecubital vein and the proximal radial artery, where a continuous suture of 6-0 Prolene used for the anastomosis. Once the clamps were released, good hemostasis was obtained with 6-0 Prolene. The patient was given protamine by Anesthesia 25 mg. Good hemostasis noted. Doppler interrogation revealed good signals in the cephalic basilic vein outflow. Subcutaneous tissue was approximated with 3-0 Monocryl, skin with subdermal 4-0 Monocryl, and Dermaglue applied. Job ID: [id number]
[2018-09-24] MEDS: cloNIDine 0.2 MG TAB PO SCH (20:35)
[2018-09-25] MEDS: Furosemide 40 MG/4 ML VIAL SLOW IVP SCH (06:03)
[2018-09-25 06:52] LABS: Anion Gap 16 mmol/L (10-20); BUN (Urea Nitrogen) 71 mg/dL (8.4-25.7); Calc. Creatinine Clearance 10 mL/min (70-130); Calcium 7.4 mg/dL (7.8-10.44); Carbon Dioxide 22 mmol/L (23-31); Chloride 108 mmol/L (98-107); Estimated GFR-MDRD 6; Glucose 97 mg/dL (83-110); Potassium 4.2 mmol/L (3.5-5.1); Sodium 142 mmol/L (136-145)
[2018-09-25] MEDS: Famotidine 20 MG TAB PO SCH (09:41)
[2018-09-25] MEDS: Sevelamer Carbonate 800 MG TAB PO SCH ×3 (09:41→16:45)
[2018-09-25] MEDS: Folic Acid/Vit B Comp W-C PO SCH (09:42)
[2018-09-25] MEDS ORDERED: Heparin 10,000 UNITS/ 10 ML VIAL ONE (10:04)
[2018-09-25] MEDS ORDERED: Epoetin (ESRD) 20,000 UNITS/ML IVP SCH ×2 (11:00→16:00)
[2018-09-25] MEDS ORDERED: Epoetin (ESRD) 10,000 UNITS/ML VIAL IVP SCH (11:16)
--- NOTE | 2018-09-25 11:35 | PRG ---
DATE OF SERVICE: 09/25/2018 SUBJECTIVE: Patient was seen and examined at bedside and overnight events noted. Patient denies any shortness of breath or chest pain or palpitation. No history of nausea or vomiting or diarrhea or fever or chills or cramps. OBJECTIVE: GENERAL: This is a well-built male, in no acute distress. VITAL SIGNS: Temperature 98.3. Heart rate HEENT: Atraumatic, normocephalic. Oral mucosa is moist NECK: Supple. CARDIOVASCULAR: S1, S2 heard. Rate and rhythm regular. RESPIRATORY: Clear to auscultation. GASTROINTESTINAL: Abdomen is soft. MUSCULOSKELETAL: No tenderness. No edema. DERMATOLOGIC: No skin rash. NEUROLOGIC: Alert and awake and oriented X3. No focal neurologic deficits. Moving all the extremities. PSYCHIATRIC: Mood and affect normal. LABORATORY DATA: Potassium 4.2, BUN is 71, and creatinine is 8.1. ASSESSMENT/PLAN: 1. End-stage renal disease. Continue on dialysis as tolerated. The patient continuing to have dialysis and tolerating well. We will have Case Management . 2. Metabolic acidosis. 3. Hypertension. 4. Edema. 5. Anemia. We will add Epogen. Continue on dialysis as tolerated. Follow with Case Management for outpatient placement. Appreciate help from Surgery. Job ID: [id number]
--- NOTE | 2018-09-25 12:08 | PDOC.PN ---
- Subjective Encounter Start Date: 09/25/18 Encounter Start Time: 07:30 Patient seen and examined. No new complaints. No overnight events - Objective Resuscitation Status - Order Detail: 09/23/18 23:49 Resuscitation Status Routine Resuscitation Status: FULL: Full Resuscitation MAR Reviewed: Yes Vital Signs & Weight: Vital Signs (12 hours) Temp Pulse Resp BP Pulse Ox 09/25/18 11:28 98.7 F 83 18 162/80 H 95 09/25/18 07:54 98.3 F 78 18 189/70 H 97 09/25/18 04:00 98.3 F 71 17 164/75 H 96 Weight Admit Weight 203 lb 12.8 oz Weight 194 lb 3.2 oz I&O: 09/24/18 09/25/18 09/26/18 06:59 06:59 06:59 Intake Total 354 500 Output Total 900 450 Balance -546 50 Result Diagrams: 09/24/18 05:28 09/25/18 06:15 Additional Labs: Accuchecks 09/25/18 09/25/18 09/24/18 11:31 05:58 20:55 POC Glucose 109 108 141 H 09/24/18 18:55 POC Glucose 88 EKG Reviewed by me: Yes Phys Exam - Physical Examination Constitutional: NAD HEENT: PERRLA, moist MMs, sclera anicteric Neck: no JVD, supple Respiratory: no wheezing, no rales, no rhonchi Cardiovascular: RRR, no significant murmur, no rub Gastrointestinal: soft, non-tender, no distention, positive bowel sounds Musculoskeletal: no edema, pulses present Neurological: non-focal, normal sensation Lymphatic: no nodes Psychiatric: normal affect, A&O x 3 Skin: no rash, normal turgor Dx/Plan (1) ESRD needing dialysis Code(s): N18.6 - END STAGE RENAL DISEASE; Z99.2 - DEPENDENCE ON RENAL DIALYSIS Status: Acute (2) High anion gap metabolic acidosis Code(s): E87.2 - ACIDOSIS Status: Acute (3) Hypoglycemia associated with type 2 diabetes mellitus Code(s): E11.649 - TYPE 2 DIABETES MELLITUS WITH HYPOGLYCEMIA WITHOUT COMA Status: Acute (4) Occult blood in stools Status: Acute (5) Anemia of renal disease Code(s): N18.9 - CHRONIC KIDNEY DISEASE, UNSPECIFIED; D63.1 - ANEMIA IN CHRONIC KIDNEY DISEASE Status: Chronic (6) Diabetes type 2, controlled Code(s): E11.9 - TYPE 2 DIABETES MELLITUS WITHOUT COMPLICATIONS Status: Chronic (7) Dyslipidemia Code(s): E78.5 - HYPERLIPIDEMIA, UNSPECIFIED Status: Chronic (8) Hypertension Code(s): I10 - ESSENTIAL (PRIMARY) HYPERTENSION Status: Chronic (9) Obesity (BMI 30.0-34.9) Code(s): E66.9 - OBESITY, UNSPECIFIED Status: Chronic (10) Secondary hyperparathyroidism of renal origin Code(s): N25.81 - SECONDARY HYPERPARATHYROIDISM OF RENAL ORIGIN Status: Chronic - Plan cont current plan of care, [employer] * medication reviewed as below * symptomatic treatment * continue HD * arrange outpt HD * expecting discharge on sunday * Dc tele * transfer to medical. Review of Systems - Review of Systems ENT: negative: Ear Pain, Ear Discharge, Nose Pain, Nose Discharge, Nose Congestion, Mouth Pain, Mouth Swelling, Throat Pain, Throat Swelling, Other Respiratory: negative: Cough, Dry, Shortness of Breath, Hemoptysis, SOB with Excertion, Pleuritic Pain, Sputum, Wheezing Cardiovascular: negative: chest pain, palpitations, orthopnea, paroxysmal nocturnal dyspnea, edema, light headedness, other Gastrointestinal: negative: Nausea, Vomiting, Abdominal Pain, Diarrhea, Constipation, Melena, Hematochezia, Other Genitourinary: negative: Dysuria, Frequency, Incontinence, Hematuria, Retention , Other Musculoskeletal: negative: Neck Pain, Shoulder Pain, Arm Pain, Back Pain, Hand Pain, Leg Pain, Foot Pain, Other Skin: negative: Rash, Lesions, Aquiles, Bruising, Other - Medications/Allergies Allergies/Adverse Reactions: Allergies Allergy/AdvReac Type Severity Reaction Status Date / Time No Known Drug Allergies Allergy Verified 09/23/18 23:05 Medications: Current Medications Acetaminophen (Tylenol) 1,000 mg PO Q6H PRN PRN Reason: Moderate to Severe Pain (6-10) Hydrocodone Bitart/Acetaminophen ([place] 5/325) 1 tab PO Q4H PRN PRN Reason: Moderate Pain (4-6) Artificial Tears (Tears Naturale) 2 drop EA EYE PRN PRN PRN Reason: Dry Eyes Calcium Carbonate (Tums) 1,000 mg PO Q4H PRN PRN Reason: Heartburn or Indigestion Clonidine (Catapres) 0.1 mg PO Q4H PRN PRN Reason: SBP Greater Than 170 Last Admin: 09/24/18 09:56 Dose: 0.1 mg Clonidine (Catapres) 0.2 mg PO HS [facility] Last Admin: 09/24/18 20:35 Dose: 0.2 mg Dextrose/Water (Dextrose 50%) 25 gm SLOW IVP PRN PRN PRN Reason: Hypoglycemia Last Admin: 09/24/18 06:04 Dose: 25 gm Epoetin Gallo (Procrit) 10,000 units IVP MoWeFr [facility] Famotidine (Pepcid) 20 mg PO QAM [facility] Last Admin: 09/25/18 09:41 Dose: Not Given Glucagon (Glucagon) 1 mg IM PRN PRN PRN Reason: Hypoglycemia Guaifenesin (Robitussin Sf) 200 mg PO Q4H PRN PRN Reason: Cough Hydralazine HCl (Apresoline) 20 mg SLOW IVP Q4H PRN PRN Reason: SBP > 180 and HR < 70 Last Admin: 09/24/18 12:38 Dose: 20 mg Dextrose/Water (D5w) 1,000 mls @ 0 mls/hr IV .Q0M PRN PRN Reason: Hypoglycemia Cefazolin Sodium/Dextrose 2 gm (/ Device) 50 mls @ 100 mls/hr IVPB ONCALL-OR MARIA G Insulin Human Lispro (Humalog) 0 units SC .MILD SLIDING SCALE PRN PRN Reason: Mild Correctional Scale Insulin Human Lispro (Humalog) 0 units SC .BEDTIME SLIDING SC PRN PRN Reason: Bedtime Correctional Scale Labetalol HCl (Normodyne) 20 mg SLOW IVP Q4H PRN PRN Reason: SBP > 180 and HR >/= 70 Loperamide HCl (Imodium) 2 mg PO PRN PRN PRN Reason: Diarrhea/Loose Stools Loratadine (Claritin) 10 mg PO DAILYPRN PRN PRN Reason: Allergies Last Admin: 09/24/18 20:35 Dose: 10 mg Metoprolol Succinate (Toprol Xl) 100 mg PO BID [facility] Last Admin: 09/25/18 11:33 Dose: 100 mg Mineral Oil/White Petrolatum (Eucerin Cream) 0 gm TOP BIDPRN PRN PRN Reason: Dry Skin Nitroglycerin (Nitrostat) 0.4 mg SL Q5MIN PRN PRN Reason: Chest Pain Read Ppd Test Site 0 each PO 1800 [facility] Stop: 09/27/18 18:01 Ondansetron HCl (Zofran Odt) 4 mg PO Q6H PRN PRN Reason: Nausea/Vomiting Ondansetron HCl (Zofran) 4 mg IVP Q6H PRN PRN Reason: Nausea/Vomiting Senna/Docusate Sodium (Senokot S) 2 tab PO BID PRN PRN Reason: Constipation Sevelamer Carbonate (Renvela) 1,600 mg PO TID-[facility] Last Admin: 09/25/18 09:41 Dose: Not Given Sodium Chloride (Flush - Normal Saline) 10 ml IVF Q12HR [facility] Last Admin: 09/25/18 09:42 Dose: Not Given Sodium Chloride (Flush - Normal Saline) 10 ml IVF PRN PRN PRN Reason: Saline Flush Last Admin: 09/24/18 12:38 Dose: 10 ml Sodium Chloride ([place] 0.65%) 0 ml EA NARE QIDPRN PRN PRN Reason: Nasal Congestion Throat Lozenges (Cepastat Lozenges) 1 rosalba PO Q2H PRN PRN Reason: Sore Throat Tramadol HCl (Ultram) 50 mg PO Q6H PRN PRN Reason: Pain 1-5 Last Admin: 09/24/18 23:05 Dose: 50 mg Vitamin B Complex/Vit C/Folic Acid (Nephro-Luda Tablet) 1 tab PO DAILY [facility] Last Admin: 09/25/18 09:42 Dose: Not Given Zolpidem Tartrate (Ambien) 10 mg PO HS PRN PRN Reason: sleep Last Admin: 09/24/18 23:05 Dose: 10 mg
--- NOTE | 2018-09-25 13:18 | PRG ---
DATE OF SERVICE: 09/25/2018 Perry Levin is doing well after placement of right arm fistula, central line, hemodialysis catheter. He has undergone two dialysis since this was done yesterday. His right hand has normal capillary refill. He denies any paresthesias. He has good lab asst strength, good motor strength. There are no signs of ischemia. He has small incision about his wrist, which was explored finding vein inadequate and this was closed. The patient's primary fistula is fed by his proximal radial artery outflow, basilic and cephalic vein. With time, the cephalic vein should mature. He should exercise and use his right arm without restrictions. There are no lifting restrictions. He should exercise it repeatedly daily. He should follow up in my office in 3 to 4 weeks. His central line can be removed prior to discharge from his left IJ. He will go home with his hemodialysis catheter use. He should follow up in my office in 3 to 4 weeks on a nondialysis day. I will see him as needed this hospitalization. Please call if necessary. Job ID: [id number]
--- NOTE | 2018-09-25 16:05 | PRG ---
DATE OF SERVICE: 09/25/2018 SUBJECTIVE: Mr. Levin has had no bowel movement today. He had 2 bloody stools yesterday. He has had dialysis twice now and has planned to not be dialyzed tomorrow and then receive dialysis on Sunday and then discharged home. PHYSICAL EXAMINATION: VITAL SIGNS: Temperature 98.7, pulse 83, blood pressure 162/80. GENERAL: He is in no acute distress. Alert and oriented x3. LUNGS: Clear to auscultation bilaterally. HEART: Regular rate and rhythm without murmur. ABDOMEN: Soft, nontender, nondistended. Bowel sounds are present. EXTREMITIES: No lower extremity edema. LABORATORY DATA: His hemoglobin is 8.9, creatinine is 8.11. IMPRESSION: 1. End-stage renal disease, initiating dialysis this hospital stay. He had catheter placement yesterday for access. 2. Hematochezia and anemia. The hematochezia overall has sounded fairly mild, maybe hemorrhoidal bleeding, but could be from a more proximal source. I have recommended EGD and colonoscopy. I think the timing of these procedures as long as they are not urgent should be delayed given that he just started dialysis yesterday. It would be better to optimize his electrolytes and fluid balance prior to performing a large volume gut lavage and anesthesia electively. I offered to make an appointment for the patient to follow up in the office in a couple of weeks; however, he states that the schedule is busy and he would like to call the office himself to schedule that appointment. I gave my name and office phone number to the patient's , who is at the bedside with him. They will call to schedule followup in the office, and if all is well, at that point, then we will plan on scheduling outpatient EGD and colonoscopy. They understand to call more immediately if he has more significant bleeding or if ultimately we need to intervene endoscopically more immediately we can. 3. I will sign off for now. Please call if GI can be of assistance. Job ID: [id number]
[2018-09-25] MEDS: cloNIDine 0.2 MG TAB PO SCH (20:46)
[2018-09-26 07:23] LABS: Anion Gap 16 mmol/L (10-20); BUN (Urea Nitrogen) 52 mg/dL (8.4-25.7); Calc. Creatinine Clearance 11 mL/min (70-130); Calcium 7.7 mg/dL (7.8-10.44); Carbon Dioxide 27 mmol/L (23-31); Chloride 102 mmol/L (98-107); Estimated GFR-MDRD 7; Glucose 105 mg/dL (83-110); Potassium 4.4 mmol/L (3.5-5.1); Sodium 141 mmol/L (136-145)
[2018-09-26] MEDS: Sevelamer Carbonate 800 MG TAB PO SCH ×3 (08:28→16:28)
[2018-09-26] MEDS: Folic Acid/Vit B Comp W-C PO SCH (08:29)
[2018-09-26] MEDS: Famotidine 20 MG TAB PO SCH (08:29)
[2018-09-26 09:05] VITALS: BMI 30.7
--- NOTE | 2018-09-26 09:40 | PDOC.PN ---
- Subjective Encounter Start Date: 09/26/18 Encounter Start Time: 09:00 Patient seen and examined. No new complaints. No overnight events - Objective Resuscitation Status - Order Detail: 09/23/18 23:49 Resuscitation Status Routine Resuscitation Status: FULL: Full Resuscitation MAR Reviewed: Yes Vital Signs & Weight: Vital Signs (12 hours) Temp Pulse Resp BP Pulse Ox 09/26/18 07:00 98.2 F 65 18 171/75 H 94 L 09/26/18 03:00 167/72 H Weight Admit Weight 203 lb 12.8 oz Weight 196 lb 4.8 oz I&O: 09/25/18 09/26/18 09/27/18 06:59 06:59 06:59 Intake Total 500 750 Output Total 450 200 Balance 50 550 Result Diagrams: 09/24/18 05:28 09/26/18 06:44 Additional Labs: Accuchecks 09/26/18 09/25/18 09/25/18 05:24 20:39 16:48 POC Glucose 112 H 174 H 134 H 09/25/18 11:31 POC Glucose 109 Phys Exam - Physical Examination Constitutional: NAD HEENT: PERRLA, moist MMs, sclera anicteric Neck: no JVD, supple Respiratory: no wheezing, no rales, no rhonchi Cardiovascular: RRR, no significant murmur, no rub Gastrointestinal: soft, non-tender, no distention, positive bowel sounds Musculoskeletal: no edema, pulses present AVF Neurological: non-focal, normal sensation, moves all 4 limbs Lymphatic: no nodes Psychiatric: normal affect, A&O x 3 Skin: no rash, normal turgor Dx/Plan (1) ESRD needing dialysis Code(s): N18.6 - END STAGE RENAL DISEASE; Z99.2 - DEPENDENCE ON RENAL DIALYSIS Status: Acute (2) High anion gap metabolic acidosis Code(s): E87.2 - ACIDOSIS Status: Acute (3) Hypoglycemia associated with type 2 diabetes mellitus Code(s): E11.649 - TYPE 2 DIABETES MELLITUS WITH HYPOGLYCEMIA WITHOUT COMA Status: Acute (4) Occult blood in stools Status: Acute (5) Anemia of renal disease Code(s): N18.9 - CHRONIC KIDNEY DISEASE, UNSPECIFIED; D63.1 - ANEMIA IN CHRONIC KIDNEY DISEASE Status: Chronic (6) Diabetes type 2, controlled Code(s): E11.9 - TYPE 2 DIABETES MELLITUS WITHOUT COMPLICATIONS Status: Chronic (7) Dyslipidemia Code(s): E78.5 - HYPERLIPIDEMIA, UNSPECIFIED Status: Chronic (8) Hypertension Code(s): I10 - ESSENTIAL (PRIMARY) HYPERTENSION Status: Chronic (9) Obesity (BMI 30.0-34.9) Code(s): E66.9 - OBESITY, UNSPECIFIED Status: Chronic (10) Secondary hyperparathyroidism of renal origin Code(s): N25.81 - SECONDARY HYPERPARATHYROIDISM OF RENAL ORIGIN Status: Chronic - Plan cont current plan of care, plan discussed w/ family, oncology social worker * medication reviewed as below * symptomatic treatment * pt is improving and feeling better * tomorrow after HD, will consider discharge if arrangement done. Review of Systems - Review of Systems ENT: negative: Ear Pain, Ear Discharge, Nose Pain, Nose Discharge, Nose Congestion, Mouth Pain, Mouth Swelling, Throat Pain, Throat Swelling, Other Respiratory: negative: Cough, Dry, Shortness of Breath, Hemoptysis, SOB with Excertion, Pleuritic Pain, Sputum, Wheezing Cardiovascular: negative: chest pain, palpitations, orthopnea, paroxysmal nocturnal dyspnea, edema, light headedness, other Gastrointestinal: negative: Nausea, Vomiting, Abdominal Pain, Diarrhea, Constipation, Melena, Hematochezia, Other Genitourinary: negative: Dysuria, Frequency, Incontinence, Hematuria, Retention , Other Musculoskeletal: negative: Neck Pain, Shoulder Pain, Arm Pain, Back Pain, Hand Pain, Leg Pain, Foot Pain, Other - Medications/Allergies Allergies/Adverse Reactions: Allergies Allergy/AdvReac Type Severity Reaction Status Date / Time No Known Drug Allergies Allergy Verified 09/23/18 23:05 Medications: Current Medications Acetaminophen (Tylenol) 1,000 mg PO Q6H PRN PRN Reason: Moderate to Severe Pain (6-10) Hydrocodone Bitart/Acetaminophen ([place] 5/325) 1 tab PO Q4H PRN PRN Reason: Moderate Pain (4-6) Artificial Tears (Tears Naturale) 2 drop EA EYE PRN PRN PRN Reason: Dry Eyes Calcium Carbonate (Tums) 1,000 mg PO Q4H PRN PRN Reason: Heartburn or Indigestion Clonidine (Catapres) 0.1 mg PO Q4H PRN PRN Reason: SBP Greater Than 170 Last Admin: 04/02/19 09:56 Dose: 0.1 mg Clonidine (Catapres) 0.2 mg PO HS [facility] Last Admin: 09/25/18 20:46 Dose: 0.2 mg Dextrose/Water (Dextrose 50%) 25 gm SLOW IVP PRN PRN PRN Reason: Hypoglycemia Last Admin: 09/24/18 06:04 Dose: 25 gm Epoetin Gallo (Procrit) 10,000 units IVP MoWeFr [facility] Last Admin: 09/25/18 16:08 Dose: 10,000 units Famotidine (Pepcid) 20 mg PO QAM [facility] Last Admin: 09/26/18 08:29 Dose: 20 mg Glucagon (Glucagon) 1 mg IM PRN PRN PRN Reason: Hypoglycemia Guaifenesin (Robitussin Sf) 200 mg PO Q4H PRN PRN Reason: Cough Hydralazine HCl (Apresoline) 20 mg SLOW IVP Q4H PRN PRN Reason: SBP > 180 and HR < 70 Last Admin: 09/24/18 12:38 Dose: 20 mg Dextrose/Water (D5w) 1,000 mls @ 0 mls/hr IV .Q0M PRN PRN Reason: Hypoglycemia Cefazolin Sodium/Dextrose 2 gm (/ Device) 50 mls @ 100 mls/hr IVPB ONCALL-OR MARIA G Insulin Human Lispro (Humalog) 0 units SC .MILD SLIDING SCALE PRN PRN Reason: Mild Correctional Scale Insulin Human Lispro (Humalog) 0 units SC .BEDTIME SLIDING SC PRN PRN Reason: Bedtime Correctional Scale Labetalol HCl (Normodyne) 20 mg SLOW IVP Q4H PRN PRN Reason: SBP > 180 and HR >/= 70 Loperamide HCl (Imodium) 2 mg PO PRN PRN PRN Reason: Diarrhea/Loose Stools Loratadine (Claritin) 10 mg PO DAILYPRN PRN PRN Reason: Allergies Last Admin: 09/24/18 20:35 Dose: 10 mg Metoprolol Succinate (Toprol Xl) 100 mg PO BID [facility] Last Admin: 09/26/18 08:29 Dose: 100 mg Mineral Oil/White Petrolatum (Eucerin Cream) 0 gm TOP BIDPRN PRN PRN Reason: Dry Skin Nitroglycerin (Nitrostat) 0.4 mg SL Q5MIN PRN PRN Reason: Chest Pain Read Ppd Test Site 0 each PO 1800 [facility] Stop: 09/27/18 18:01 Ondansetron HCl (Zofran Odt) 4 mg PO Q6H PRN PRN Reason: Nausea/Vomiting Ondansetron HCl (Zofran) 4 mg IVP Q6H PRN PRN Reason: Nausea/Vomiting Senna/Docusate Sodium (Senokot S) 2 tab PO BID PRN PRN Reason: Constipation Sevelamer Carbonate (Renvela) 1,600 mg PO TID-WM [facility] Last Admin: 09/26/18 08:28 Dose: 1,600 mg Sodium Chloride (Flush - Normal Saline) 10 ml IVF Q12HR [facility] Last Admin: 09/26/18 08:30 Dose: 10 ml Sodium Chloride (Flush - Normal Saline) 10 ml IVF PRN PRN PRN Reason: Saline Flush Last Admin: 09/24/18 12:38 Dose: 10 ml Sodium Chloride ([place] Nasal [place] 0.65%) 0 ml EA NARE QIDPRN PRN PRN Reason: Nasal Congestion Throat Lozenges (Cepastat Lozenges) 1 rosalba PO Q2H PRN PRN Reason: Sore Throat Tramadol HCl (Ultram) 50 mg PO Q6H PRN PRN Reason: Pain 1-5 Last Admin: 09/24/18 23:05 Dose: 50 mg Vitamin B Complex/Vit C/Folic Acid (Nephro-Luda Tablet) 1 tab PO DAILY [facility] Last Admin: 09/26/18 08:29 Dose: 1 tab Zolpidem Tartrate (Ambien) 10 mg PO HS PRN PRN Reason: sleep Last Admin: 09/24/18 23:05 Dose: 10 mg
--- NOTE | 2018-09-26 11:06 | PRG ---
DATE OF SERVICE: 09/26/2018 SUBJECTIVE: Patient was seen and examined at bedside and overnight events noted. Patient denies any shortness of breath or chest pain or palpitation. No history of nausea or vomiting or diarrhea or fever or chills or cramps. OBJECTIVE: GENERAL: This is a well-built male, in no apparent distress. VITAL SIGNS: Temperature 98.2, heart rate 65. Respiratory rate 18. Blood pressure 171/75. HEENT: Atraumatic, normocephalic. Oral mucosa is moist NECK: Supple. CARDIOVASCULAR: S1, S2 heard. Rate and rhythm regular. RESPIRATORY: Clear to auscultation. GASTROINTESTINAL: Abdomen is soft. MUSCULOSKELETAL: No tenderness. No edema. DERMATOLOGIC: No skin rash. NEUROLOGIC: Alert and awake and oriented X3. No focal neurologic deficits. Moving all the extremities. PSYCHIATRIC: Mood and affect normal. LABORATORY DATA: Potassium 4.4, BUN is 52, creatinine is 7.3. ASSESSMENT AND PLAN: 1. End-stage renal disease, continue dialysis as tolerated. 2. Metabolic acidosis. 3. Hypertension. 4. Edema. 5. Anemia. Plan to continue on dialysis as tolerated. Follow with Case Management for outpatient placement. Job ID: [id number]
[2018-09-26] MEDS ORDERED: READ PPD TEST SITE PO SCH (18:00)
[2018-09-26] MEDS: cloNIDine 0.2 MG TAB PO SCH (20:13)
[2018-09-27] MEDS: Zolpidem Tartrate 5 MG TAB PO PRN (00:10)
[2018-09-27 06:48] LABS: Anion Gap 14 mmol/L (10-20); BUN (Urea Nitrogen) 59 mg/dL (8.4-25.7); Calc. Creatinine Clearance 10 mL/min (70-130); Calcium 7.1 mg/dL (7.8-10.44); Carbon Dioxide 26 mmol/L (23-31); Chloride 101 mmol/L (98-107); Estimated GFR-MDRD 7; Glucose 103 mg/dL (83-110); Potassium 3.8 mmol/L (3.5-5.1); Sodium 137 mmol/L (136-145)
--- NOTE | 2018-09-27 10:51 | DIS ---
DATE OF ADMISSION: 09/23/2018 DATE OF DISCHARGE: 09/27/2018 PRIMARY CARE PHYSICIAN: Dr. Jeff Jones. DISCHARGE DISPOSITION: Home. PRIMARY DISCHARGE DIAGNOSES: 1. End-stage renal disease, needing hemodialysis. 2. Anion gap metabolic acidosis due to problem #1. 3. Hypoglycemia associated with diabetes type 2 due to n.p.o. Status. 4. Occult blood in stool. 5. Anemia of renal disease. 6. Secondary hyperparathyroidism of renal origin. SECONDARY DISCHARGE DIAGNOSES: 1. Obesity. 2. Hypertension. 3. Dyslipidemia. 4. Diabetes, type 2. 5. Chronic kidney disease, stage 4. PRIMARY PROCEDURES/OPERATIONS: Tunneled hemodialysis catheter placement by Dr. Giles, AV fistula placement by Dr. Giles, maintenance hemodialysis. RADIOLOGICAL INVESTIGATION: Chest x-ray was normal. Chest x-ray after dialysis catheter placement was normal. Marking ultrasound was done. SIGNIFICANT LABORATORY DATA: WBC 10.4, hemoglobin 8.9, and platelets 190. Sodium 137, potassium 3.8, BUN 59, creatinine 8.07, calcium 7.1. Urinalysis unremarkable. Hepatitis profile negative. Stool for infection workup negative. DISCHARGE MEDICATIONS: 1. Catapres 0.2 mg p.o. at bedtime. 2. Farideh 60 mg daily p.r.n. 3. Glipizide 5 mg daily. 4. Toprol-XL 100 mg p.o. b.i.d. 5. [place]-3 one capsule daily. 6. Ambien 10 mg p.o. at bedtime p.r.n. 7. Amlodipine 5 mg p.o. daily. 8. Nephro-Luda one tablet daily. 9. Renvela 1600 mg p.o. t.i.d. CONTRAINDICATION: None. CODE STATUS: Full code. INPATIENT PATIENT TRANSPORT ORDERLY: 1. Dr. Giles was consulted for dialysis access. 2. Dr. Mariano was following for renal failure. 3. Dr. Hernández was consulted for guaiac positive stool. TEST RESULTS PENDING ON DISCHARGE: None. ALLERGIES: NO KNOWN DRUG ALLERGIES. DISCHARGE PLAN: Posthospital, the patient will follow up with Dr. Hernández, Dr. Jeff Jones, and Dr. Mariano as instructed, the patient will follow up with Dr. Giles. HOSPITAL COURSE: A 78-year-old male, who was admitted by Dr. Corrales, please see his H and P for further details. This patient has gradually worsening renal failure. [facility] for worsening of renal failure. He approached to ESRD. He was needing dialysis. On admission, he was having all chronic kidney disease related complication including anemia of renal disease, secondary hyperparathyroidism of renal origin, metabolic acidosis. The patient's creatinine was elevated. He was requiring dialysis and that is why dialysis access was done by Dr. Giles. The patient got maintenance hemodialysis while in hospital. At this point, the patient has approval for outpatient hemodialysis as well. The patient is tolerating his dialysis. He is feeling much better. I have seen and examined the patient at bedside today. The patient's review of systems reviewed with him and negative. Plan of care discussed with the patient and his . During this admission, we have discontinued Lasix and we added amlodipine on his regimen. For secondary hyperparathyroidism, we added Renvela and Nephro-Luda is given. He will continue to get Procrit from [facility]. The patient's vitals are stable. His physical examination is unremarkable. His central line, which was placed by Dr. Giles, which will be removed before discharge. Overall, the patient is medically stable for discharge today. Job ID: [id number]
[2018-09-27] MEDS ORDERED: Heparin 1,000 UNITS/ML VIAL ONE (11:11)
[2018-09-27] MEDS: Sevelamer Carbonate 800 MG TAB PO SCH ×3 (13:24→16:39)
[2018-09-27] MEDS: Famotidine 20 MG TAB PO SCH (13:24)
[2018-09-27] MEDS: Folic Acid/Vit B Comp W-C PO SCH (13:24)
[2018-09-27] MEDS ORDERED: EPOETIN ALFA-EPBX (ESRD) 10,000 UNIT/ML VIAL IVP SCH (14:45)
--- NOTE | 2018-09-27 16:28 | PRG ---
DATE OF SERVICE: 09/27/2018 SUBJECTIVE: Patient was seen and examined at bedside and overnight events noted. Patient denies any shortness of breath or chest pain or palpitation. No history of nausea or vomiting or diarrhea or fever or chills or cramps. OBJECTIVE: GENERAL: This is a well-built male, in no apparent distress. VITAL SIGNS: Temperature 97.8. Heart rate 72. Respiratory rate 18. Blood pressure 174/79. HEENT: Atraumatic, normocephalic. Oral mucosa is moist NECK: Supple. CARDIOVASCULAR: S1, S2 heard. Rate and rhythm regular. RESPIRATORY: Clear to auscultation. GASTROINTESTINAL: Abdomen is soft. MUSCULOSKELETAL: No tenderness. No edema. DERMATOLOGIC: No skin rash. NEUROLOGIC: Alert and awake and oriented X3. No focal neurologic deficits. Moving all the extremities. PSYCHIATRIC: Mood and affect normal. LABORATORY DATA: Potassium is 3.8, BUN is 59, creatinine is 8.07. ASSESSMENT AND PLAN: 1. End-stage renal disease, continue dialysis. Follow up with Case Management for outpatient placement. 2. Metabolic acidosis. 3. Hypertension. 4. Edema . Job ID: [id number]
[2018-09-27 16:45] VITALS: BP 163/70; TEMP 98.1
== END 2018-09-27 17:24 | disposition home or self-care (01) | DRG 673 ==
LOC: ERS 17:38 → 2NO 20:09 → T4-B 09-25 17:45
PROVIDERS: ADMIT Family Medicine; ATTEND Family Medicine
PROC: 0JH63XZ Insertion of Tunneled Vascular Access Device into Chest Subcutaneous Tissue and Fascia, Percutaneous Approach (ICD-10-PCS; principal; 2018-09-24)
PROC: 031B0ZF Bypass Right Radial Artery to Lower Arm Vein, Open Approach (ICD-10-PCS; 2018-09-24)
PROC: 02HV33Z Insertion of Infusion Device into Superior Vena Cava, Percutaneous Approach (ICD-10-PCS; 2018-09-24)
PROC: B518YZA Fluoroscopy of Superior Vena Cava using Other Contrast, Guidance (ICD-10-PCS; 2018-09-24)
PROC: 5A1D70Z Performance of Urinary Filtration, Intermittent, Less than 6 Hours Per Day (ICD-10-PCS; 2018-09-27)
DX: I12.0 Hypertensive chronic kidney disease with stage 5 chronic kidney disease or end stage renal disease (principal); N18.6 End stage renal disease; E87.2 Acidosis; K92.1 Melena; N25.81 Secondary hyperparathyroidism of renal origin; E78.5 Hyperlipidemia, unspecified; E11.22 Type 2 diabetes mellitus with diabetic chronic kidney disease; I16.0 Hypertensive urgency; D63.1 Anemia in chronic kidney disease; E11.649 Type 2 diabetes mellitus with hypoglycemia without coma; E66.9 Obesity, unspecified; Z90.49 Acquired absence of other specified parts of digestive tract; Z85.828 Personal history of other malignant neoplasm of skin; Z79.899 Other long term (current) drug therapy; Z79.84 Long term (current) use of oral hypoglycemic drugs; Z68.31 Body mass index [BMI] 31.0-31.9, adult
CPT/HCPCS: 36415; 36416; 71045; 80048; 80053; 81003; 81015; 82274; 82550; 82728; 83540; 83550; 83630; 83690; 83880; 83970; 84100; 85007; 85025; 85027; 86580; 86704; 86706; 86803; 87045; 87046; 87324; 87340; 87449; 87899; 90935; 93005; 93970; C1752; C1769; G0257; G0365; J0360; J0670; J1644; J1940; J2001; J2250; J2704; J2720; J3010; Q4081; Q5105

== ENCOUNTER 2018-11-26 06:51 | Day surgery (SDC) | payer MEDICARE, BC ==
[2018-11-25 11:31] VITALS: BMI 31.8
[2018-11-26 08:15] VITALS: BP 128/56; TEMP 98.1
--- NOTE | 2018-11-26 09:17 | SPC ---
RIGHT UPPER EXTREMITY DIALYSIS FISTULOGRAM: HISTORY: Late-maturing dialysis fistula. Dose: 1.4 minutes of fluoroscopy and DAP of 17.3 Gy/cm2. TECHNIQUE/FINDINGS: Informed consent was obtained from the patient. The dialysis fistula was prepped and draped in the [facility] sterile manner. A 1% lidocaine solution was used to anesthetize overlying soft tissues. A small dermatotomy was made. A 5 Tristan[place] micropuncture set was introduced. Dialysis fistulogram was performed . The arterial anastomosis is unremarkable. Inflowing brachial artery is unremarkable. The draining basilic vein is unremarkable. The right axillary vein, subclavian vein, brachiocephalic vein, and sup erior vena cava are all patent without evidence of significant occlusive disease. IMPRESSION: Normal functioning right upper extremity dialysis fistula. No occlusive lesions seen. Transcribed Date/Time: 11/26/2018 9:44 AM
== END 2018-11-26 09:30 | disposition home or self-care (01) ==
LOC: SPEC 06:51
PROVIDERS: ATTEND Specialist
PROC: B51W1ZZ Fluoroscopy of Dialysis Shunt/Fistula using Low Osmolar Contrast (ICD-10-PCS; principal; 2018-11-26)
DX: I12.0 Hypertensive chronic kidney disease with stage 5 chronic kidney disease or end stage renal disease (principal); E11.22 Type 2 diabetes mellitus with diabetic chronic kidney disease; N18.6 End stage renal disease; E78.5 Hyperlipidemia, unspecified; E66.9 Obesity, unspecified; Z68.31 Body mass index [BMI] 31.0-31.9, adult; Z99.2 Dependence on renal dialysis; Z79.84 Long term (current) use of oral hypoglycemic drugs; Z79.899 Other long term (current) drug therapy
CPT/HCPCS: 36901

== ENCOUNTER 2018-12-03 09:41 | Day surgery (SDC) | payer MEDICARE, BC ==
--- NOTE | 2018-11-27 11:29 | HP ---
HISTORY OF PRESENT ILLNESS: Perry Levin is a 78-year-old male patient, status post left arm fistula, inflow proximal radial artery outflow cephalic vein and basilic vein. Cephalic vein calibrated to 4 mm coronary dilator. This retrograde antecubital vein preserved. This is not maturing as expected. A fistulogram obtained revealed occlusion of cephalic vein outflow with primary basilic vein outflow. Plan is basilic vein transposition fistula, right arm. The patient understands risks and benefits, and consents. MEDICATIONS: 1. Glipizide. 2. Catapres. 3. [place]-3. 4. Metoprolol. 5. Furosemide. 6. Ambien. PAST MEDICAL HISTORY: End-stage renal disease on maintenance dialysis, hyperlipidemia, hypertension, and diabetes mellitus dialyzes [facility] in [place] Sunday, Sunday, and Sunday. PAST SURGICAL HISTORY: Laparotomy in [facility], hemodialysis catheter, and right arm fistula placed on 04/01/2018. REVIEW OF SYSTEMS: Noncontributory. SOCIAL HISTORY: Tobacco, none. Alcohol, none. PHYSICAL EXAMINATION: VITAL SIGNS: Weight 187 pounds. 146/54, 82, and 98.3. HEENT: Head, ears eyes, nose and throat, unremarkable. LUNGS: Clear to auscultation. CARDIAC: Regular rate and rhythm without murmur or gallop. ABDOMEN: Soft and nontender. EXTREMITIES: Right arm fistula good thrill and bruit in minimal. No signal in the cephalic vein upper arm half. ASSESSMENT: Dysfunctional fistula, right arm with occlusion of the cephalic vein outflow. PLAN: Basilic vein transposition fistula. He understands risks and benefits, consents. Job ID: [id number]
[2018-12-02 13:13] VITALS: BMI 26.6
[2018-12-03 11:14] LABS: #Eosinphils 0.2 thou/uL (0.0-0.7); #Lymphocytes 2.1 thou/uL (1.20-3.40); #Monocytes 0.8 thou/uL (0.11-0.59); %Basophils 0.1 % (0.0-1.0); %Eosinophils 2.8 % (0.0-10.0); %Lymphocytes 25.6 % (21.0-51.0); %Monocytes 9.9 % (0.0-10.0); %Neutrophils 61.5 % (42.0-75.0); Hemoglobin 10.2 g/dL (14.0-18.0); Mean Corpuscular Hemoglobin 29.7 pg (27.0-31.0); Mean Platelet Volume 6.1 fL (7.4-10.4); Platelet Count 254 thou/uL (130-400); RBC Distribution Width 14.9 % (11.5-14.5); Red Blood Cell (RBC) Count 3.44 mill/uL (4.70-6.10); White Blood Cell (WBC) Count 8.2 thou/uL (4.8-10.8)
[2018-12-03 11:21] LABS: Hemoglobin A1c 4.9 % (4.0-6.0)
[2018-12-03 11:35] LABS: Anion Gap 19 mmol/L (10-20); BUN (Urea Nitrogen) 45 mg/dL (8.4-25.7); Calc. Creatinine Clearance 7 mL/min (70-130); Calcium 9.6 mg/dL (7.8-10.44); Carbon Dioxide 25 mmol/L (23-31); Chloride 98 mmol/L (98-107); Estimated GFR-MDRD 6; Glucose 107 mg/dL (83-110); Potassium 4.8 mmol/L (3.5-5.1); Sodium 137 mmol/L (136-145)
[2018-12-03] MEDS ORDERED: Lidocaine 1% (PF) 30 ML VIAL ONE ×2 (12:10→12:33)
[2018-12-03] MEDS ORDERED: Bupivacaine HCl 0.5%/Epinephrine 1:200,000/PF 30 ml Vial ONE (12:32)
[2018-12-03] MEDS ORDERED: Heparin 5,000 UNITS/ML VIAL ONE (12:32)
[2018-12-03] MEDS ORDERED: Protamine Sulfate 50 MG/5 ML VIAL ONE (12:32)
[2018-12-03] MEDS ORDERED: Lidocaine 2% PF 5 ML VIAL ONE (12:36)
[2018-12-03] MEDS ORDERED: Propofol 500 MG/50 ML VIAL ONE (14:03)
[2018-12-03] MEDS ORDERED: Heparin 10,000 UNITS/ 10 ML VIAL ONE (15:46)
--- NOTE | 2018-12-03 17:25 | OP ---
DATE OF PROCEDURE: 12/03/2018 PREOPERATIVE DIAGNOSES: End-stage renal disease, dysfunctional right arm fistula, and need of BVTF. POSTOPERATIVE DIAGNOSES: End-stage renal disease, dysfunctional right arm fistula, and need of BVTF. PROCEDURE PERFORMED: Basilic vein transposition fistula, right arm. ANESTHESIA: Regional, TIVA. DESCRIPTION OF PROCEDURE: The patient was taken to the operating room, where under intravenous sedation and regional anesthesia, the right upper extremity was prepared with ChloraPrep and draped in routine fashion. Incision was made from the proximal volar forearm up the medial arm to axilla, carried down through skin and subcutaneous tissue and the deep fascia unroofing the basilic vein, dividing branches between 4-0 silk ties and clips protecting nerve structures. Ruthann-Wijose rafael tunneler used to create a tunnel with a 12 mm head between the antecubital fossa and axilla, dividing the fascia to the biceps muscle to prevent obstruction and the patient was given 6000 units of heparin intravenously. After adequate circulation, the basilic vein origin from the bifurcation of basilic cephalic vein was clamped with vascular clamps, divided. After it was marked to maintain orientation and then was flushed with heparinized saline solution and then connected to tunneler with 3-0 Monocryl and brought through the tunnel, flushed with heparinized saline solution, assuring patency and lack of torsion. At this point, the cephalic vein had been dissected free in the distal upper arm and the stump ligated with 3-0 silk tie, divided. Both the basilic and cephalic vein were spatulated and the end anastomosis was created with continuous suture of 6-0 Prolene. After completing the anastomosis, vascular clamps were released and there was excellent flow in the fistula expected throughout. Good hemostasis noted. The patient was given 25 mg of protamine by Anesthesia. The basilic vein origin stump that had been clamped was ligated with to and fro sutures of 6-0 Prolene. Once this was completed, vascular clamps were released. The basilic vein in harvest bed was inspected. Hemostasis was gained with cautery and clips and Surgicel applied, and subcutaneous tissue was approximated with 3-0 Monocryl, skin with refugio and sterile dressing applied. Lion wrap applied. The patient tolerated the procedure well. Job ID: [id number]
== END 2018-12-03 16:20 | disposition home or self-care (01) ==
LOC: SDC 09:41
PROVIDERS: ATTEND Specialist
PROC: 05SB3ZZ Reposition Right Basilic Vein, Percutaneous Approach (ICD-10-PCS; principal; 2018-12-03)
DX: T82.590A Other mechanical complication of surgically created arteriovenous fistula, initial encounter (principal); I12.0 Hypertensive chronic kidney disease with stage 5 chronic kidney disease or end stage renal disease; N18.6 End stage renal disease; E11.22 Type 2 diabetes mellitus with diabetic chronic kidney disease; E78.5 Hyperlipidemia, unspecified; Z79.899 Other long term (current) drug therapy; Z99.2 Dependence on renal dialysis
CPT/HCPCS: 80048; 83036; 85025; J0670; J0690; J1644; J2001; J2704; J2720